=== PATIENT | male | born 1965 | race Caucasian/White ===

== ENCOUNTER 2023-02-03 18:21 | Emergency (ER) | payer OTHER, MEDICAID ==
[~2023-02-03] VITALS: Ht 165.1 cm; Wt 83.9 kg
[2023-02-03 18:27] VITALS: BP_SYST 181; PULSE 79; RESP 20; TEMP 97.3; O2SAT 95
== END 2023-02-03 19:42 ==
LOC: SED 18:21
DX: Z02.89 Encounter for other administrative examinations (principal); Z79.899 Other long term (current) drug therapy
CPT/HCPCS: 99283